=== PATIENT | female | born 1995 | race Two or more races ===

== ENCOUNTER 2023-12-02 10:47 | Outpatient (CLI) | payer OTHER | END 2023-12-02 10:49 | disposition home or self-care (01) | LOC: PRENATAL 10:47 | PROVIDERS: ATTEND Obstetrics & Gynecology Maternal & Fetal Medicine | DX: O36.80X0 Pregnancy with inconclusive fetal viability, not applicable or unspecified (principal); Z36.82 Encounter for antenatal screening for nuchal translucency; Z36.9 Encounter for antenatal screening, unspecified; Z3A.12 12 weeks gestation of pregnancy ==

== ENCOUNTER 2024-05-23 10:30 | Outpatient (CLI) | payer OTHER ==
[~2024-05-23] VITALS: Ht 162.6 cm; Wt 86.2 kg
[2024-05-23] MEDS ORDERED: PRENATAL TABLE1 EAC1 PO (11:15)
[2024-05-23] MEDS ORDERED: RINGERS SOLUTION,LACTATED 1,000 ML IV SCH (12:00)
[2024-05-23 12:03] LABS: HEMATOCRIT 33.4 % (36.0-45.00); HEMOGLOBIN 11.5 g/dL (12.0-15.00); MEAN CELL VOLUME 88.1 fL (80.00-100.00); MEAN CORPUSCULAR HEMOGLOBIN 30.3 pg (27.00-32.0); MEAN CORPUSCULAR HGB CONC 34.4 g/dl (32.0-36.0); PLATELET COUNT 162 K/uL (150-450); RED BLOOD COUNT 3.79 M/uL (4.00-6.00); RED CELL DISTRIBUTION WIDTH 12.8 % (11.5-14.5)
[2024-05-23 12:22] LABS: URINE APPEARANCE Clear; URINE BILIRRUBIN Negative (NEGATIVE); URINE BLOOD Negative; URINE COLOR Yellow; URINE GLUCOSE Negative (NEGATIVE); URINE KETONE Negative (NEGATIVE); URINE LEUKOCYTE Negative; URINE NITRATE Negative; URINE PROTEIN Negative (NEGATIVE); URINE UROBILINOGEN 0.2 E.U./dl
[2024-05-23 12:27] LABS: URINE BACTERIA 81.8 uL (0.0-1933); URINE EPITHELIAL CELLS 4.4 uL (0.0-38.8)
[2024-05-23 12:31] LABS: INR < 0.93; PARTIAL THROMBOPLASTIN TIME 25.7 SECONDS (22.0-34.0); PROTHROMBIN TIME 10.2 SECONDS (9.0-11.5)
[2024-05-23 12:31] LABS: URINE CAST 0.15 uL (0.0-1.40); URINE RBC 0.1 uL (0.0-20.8); URINE WBC 1.3 uL (0.0-23.2)
[2024-05-23 12:35] LABS: ALBUMIN 2.7 gm/dL (3.4-5.0); BILIRUBIN TOTAL 0.3 mg/dL (0.3-1.2); CALCIUM 8.7 mg/dL (8.5-10.1); CREATININE SERUM 0.7 mg/dL (0.55-1.02); GFR 99.64; GLOBULINA 3.4 G/DL (2.4-3.5); POTASSIUM 3.8 mEq/L (3.5-5.1); TOTAL PROTEIN 6.1 gm/dL (6.4-8.2)
[2024-05-24 11:43] LABS: URINE PROT QUANT 24HR < 5.00 MG/DL
[2024-05-24 12:41] LABS: CREATINE CLEARANCE 113.8 ML/MIN (97-137); CREATININE SERUM 0.69 mg/dL (0.6-1.0)
== END 2024-05-24 13:06 | disposition home or self-care (01) ==
LOC: OBS/DEL 10:30
PROVIDERS: ATTEND General Practice
DX: O26.893 Other specified pregnancy related conditions, third trimester (principal); O26.849 Uterine size-date discrepancy, unspecified trimester; O36.8199 Decreased fetal movements, unspecified trimester, other fetus; O14.90 Unspecified pre-eclampsia, unspecified trimester

== ENCOUNTER 2024-06-01 14:30 | Inpatient (IN) | payer OTHER ==
[~2024-06-01] VITALS: Ht 162.6 cm; Wt 3.2 kg
[~2024-06-01 14:30] MED LIST: PRENATAL TABLE1 EAC1 PO
[2024-06-10 03:17] VITALS: BP 136/85
[2024-06-10] MEDS ORDERED: RINGERS SOLUTION,LACTATED 1,000 ML IV SCH (04:15)
[2024-06-10 04:52] LABS: HEMATOCRIT 35.1 % (36.0-45.00); MEAN CELL VOLUME 86.3 fL (80.00-100.00); MEAN CORPUSCULAR HEMOGLOBIN 29.4 pg (27.00-32.0); MEAN CORPUSCULAR HGB CONC 34.1 g/dl (32.0-36.0); PLATELET COUNT 152 K/uL (150-450); RED BLOOD COUNT 4.07 M/uL (4.00-6.00); RED CELL DISTRIBUTION WIDTH 13.5 % (11.5-14.5)
[2024-06-10 05:02] LABS: INR < 0.93; PARTIAL THROMBOPLASTIN TIME 25.8 SECONDS (22.0-34.0)
[2024-06-10 05:06] LABS: BILIRUBIN TOTAL 0.24 mg/dL (0.3-1.2); CALCIUM 9.3 mg/dL (8.5-10.1); CREATININE SERUM 0.73 mg/dL (0.55-1.02); GFR 94.93; GLOBULINA 3.7 G/DL (2.4-3.5); POTASSIUM 4.28 mEq/L (3.5-5.1); TOTAL PROTEIN 6.7 gm/dL (6.4-8.2)
[2024-06-10] MEDS ORDERED: OXYTOCIN IV SCH (08:00)
[2024-06-10] MEDS ORDERED: OXYTOCIN 20 UNITS/500ML RL PIGGYBAG IV ONE (08:01)
[2024-06-10 08:26] VITALS: BP 121/72
[2024-06-10 12:14] VITALS: BP 133/77
[2024-06-10 15:53] VITALS: BP 133/77
[2024-06-10] MEDS ORDERED: MORPHINE SULFATE 4 MG/ML VIAL IV PRN ×2 (16:00→19:45)
[2024-06-10 20:03] VITALS: BP 140/81
[2024-06-10] MEDS ORDERED: OXYTOCIN 10 UNITS/ML VIAL ONE ×2 (22:12→22:26)
[2024-06-10] MEDS ORDERED: ERYTHROMYCIN BASE OPHT 1GM EACH TUBE OP ONE (22:26)
[2024-06-10] MEDS ORDERED: CEFAZOLIN SODIUM 1,000 MG VIAL ONE (22:45)
[2024-06-11] MEDS ORDERED: FAMOTIDINE/PF 20 MG/2 ML VIAL IV SCH ×2 (00:08→17:00)
[2024-06-11] MEDS ORDERED: MEPERIDINE HCL/PF 25 MG/ML VIAL IV PRN (00:15)
[2024-06-11] MEDS ORDERED: ONDANSETRON HCL 2 MG/ML VIAL IV PRN (00:15)
[2024-06-11] MEDS ORDERED: PROMETHAZINE HCL 25 MG/ML AMPUL IV PRN (00:15)
[2024-06-11] MEDS ORDERED: KETOROLAC TROMETHAMINE 30 MG VIAL IV SCH (01:00)
[2024-06-11] MEDS ORDERED: FAMOTIDINE/PF 20 MG/2 ML VIAL ONE (01:41)
[2024-06-11] MEDS ORDERED: KETOROLAC TROMETHAMINE 30 MG VIAL ONE (01:41)
[2024-06-11 03:33] VITALS: BP 133/82
[2024-06-11 07:43] LABS: HEMATOCRIT 34.1 % (36.0-45.00); HEMOGLOBIN 11.4 g/dL (12.0-15.00); MEAN CELL VOLUME 88.8 fL (80.00-100.00); MEAN CORPUSCULAR HEMOGLOBIN 29.7 pg (27.00-32.0); MEAN CORPUSCULAR HGB CONC 33.5 g/dl (32.0-36.0); PLATELET COUNT 137 K/uL (150-450); RED BLOOD COUNT 3.84 M/uL (4.00-6.00); RED CELL DISTRIBUTION WIDTH 13.7 % (11.5-14.5)
[2024-06-11 09:00] VITALS: BP 143/86
[2024-06-11] MEDS ORDERED: OxyCODONE HCL/APAP UD (PERCOCET) PO PRN (09:00)
[2024-06-11 09:54] LABS: URINE APPEARANCE Clear; URINE BILIRRUBIN Negative (NEGATIVE); URINE BLOOD Negative; URINE COLOR Yellow; URINE GLUCOSE Negative (NEGATIVE); URINE KETONE Negative (NEGATIVE); URINE LEUKOCYTE Negative; URINE NITRATE Negative; URINE PROTEIN Negative (NEGATIVE); URINE UROBILINOGEN 0.2 E.U./dl
[2024-06-11 09:58] LABS: URINE BACTERIA 11.3 uL (0.0-1933)
[2024-06-11 10:12] LABS: URINE CAST 0.15 uL (0.0-1.40); URINE EPITHELIAL CELLS 0.4 uL (0.0-38.8); URINE RBC 0.3 uL (0.0-20.8); URINE WBC 1.2 uL (0.0-23.2)
[2024-06-11] MEDS ORDERED: DOCUSATE SODIUM 100MG CAP PO SCH (10:30)
[2024-06-11] MEDS ORDERED: IBUprofen 800 MG TABLET PO PRN (10:30)
[2024-06-11 16:00] VITALS: BP 135/85
[2024-06-11 22:00] VITALS: BP 135/90
[2024-06-12 02:14] VITALS: BP 139/87
[2024-06-12 10:05] VITALS: BP 129/80
[2024-06-12 19:00] VITALS: BP 132/87
[2024-06-13 01:43] VITALS: BP 143/87
[2024-06-13 02:45] LABS: HEMATOCRIT 31.4 % (36.0-45.00); HEMOGLOBIN 10.9 g/dL (12.0-15.00); MEAN CELL VOLUME 87.4 fL (80.00-100.00); MEAN CORPUSCULAR HEMOGLOBIN 30.3 pg (27.00-32.0); MEAN CORPUSCULAR HGB CONC 34.7 g/dl (32.0-36.0); PLATELET COUNT 164 K/uL (150-450); RED BLOOD COUNT 3.59 M/uL (4.00-6.00)
[2024-06-13 03:06] LABS: ALBUMIN 2.4 gm/dL (3.4-5.0); BILIRUBIN TOTAL 0.37 mg/dL (0.3-1.2); CALCIUM 8.2 mg/dL (8.5-10.1); CREATININE SERUM 0.65 mg/dL (0.55-1.02); GFR 108.53; GLOBULINA 3.4 G/DL (2.4-3.5); POTASSIUM 3.74 mEq/L (3.5-5.1); TOTAL PROTEIN 5.8 gm/dL (6.4-8.2)
[2024-06-13 03:12] VITALS: BP 138/81
[2024-06-13 10:31] VITALS: BP 136/86
== END 2024-06-13 14:06 | disposition home or self-care (01) | DRG 788 ==
LOC: OB/GYN 06-09 14:30 → LDR 06-10 03:53 → O/R 06-10 23:15 → OB/GYN 06-10 23:41
PROVIDERS: ADMIT General Practice; ATTEND General Practice
PROC: 4A1HXCZ Monitoring of Products of Conception, Cardiac Rate, External Approach (ICD-10-PCS; 2024-06-10)
PROC: 10D00Z1 Extraction of Products of Conception, Low, Open Approach (ICD-10-PCS; principal; 2024-06-10 23:00)
DX: O82 Encounter for cesarean delivery without indication (principal); O62.1 Secondary uterine inertia; O36.8330 Maternal care for abnormalities of the fetal heart rate or rhythm, third trimester, not applicable or unspecified; Z3A.00 Weeks of gestation of pregnancy not specified; Z37.0 Single live birth; Z20.822 Contact with and (suspected) exposure to COVID-19

== ENCOUNTER 2024-06-09 10:48 | Outpatient (CLI) | payer OTHER | END 2024-06-09 11:33 | disposition home or self-care (01) | LOC: NST 10:48 | PROVIDERS: ATTEND Obstetrics & Gynecology | DX: Z34.83 Encounter for supervision of other normal pregnancy, third trimester (principal) ==

== ENCOUNTER → 2024-06-10 | Outpatient (CLI) | payer OTHER ==
[~2024-06-10] VITALS: Ht 162.6 cm; Wt 85.7 kg
[~2024-06-10] MED LIST changes: +RINGERS SOLUTION,LACTATED 1,000 ML IV SCH
[2024-06-10 00:49] VITALS: BP 136/85
== END | disposition still patient (30) ==
LOC: OBS/DEL 01:24
PROVIDERS: ATTEND General Practice
DX: Z34.83 Encounter for supervision of other normal pregnancy, third trimester (principal)